=== PATIENT | female | born 1995 | race Caucasian/White ===

== ENCOUNTER → 2016-05-29 | Outpatient (CLI) | payer OTHER | LOC: COL.RAD 05-27 08:00 | DX: M24.852 Other specific joint derangements of left hip, not elsewhere classified (principal); M24.851 Other specific joint derangements of right hip, not elsewhere classified; M25.552 Pain in left hip; M25.551 Pain in right hip; Z98.890 Other specified postprocedural states | CPT/HCPCS: A9585; J3301; Q9967 ==